=== PATIENT | female | born 1975 | race Caucasian/White ===

== ENCOUNTER → 2016-10-10 | Outpatient (REF) | payer BC | LOC: M SFHCPLAZ 11:24 | PROVIDERS: ATTEND Dermatology | DX: L57.0 Actinic keratosis (principal); L98.8 Other specified disorders of the skin and subcutaneous tissue; L08.89 Other specified local infections of the skin and subcutaneous tissue ==

== ENCOUNTER → 2017-05-29 | Outpatient (REF) | payer BC | LOC: M LAB REF 17:11 | PROVIDERS: ATTEND Family Medicine | DX: Z12.4 Encounter for screening for malignant neoplasm of cervix (principal) ==

== ENCOUNTER → 2017-06-05 | Outpatient (CLI) | payer BC ==
[~2017-06-05] MED LIST: PROHANCE 279.3MG/ML 5ML VIAL (A9576) As Ordered ONE
--- NOTE | 2017-06-06 09:02 | REP ---
MRI pelvis without and with gadolinium: History: Mass effect in the lower uterus on ultrasound May 21, 2017. Technique: Sagittal, axial and coronal imaging planes are utilized. T1 and T2-weighted scans were obtained. Gadolinium enhancement dose: 10 ml of intravenous ProHance. MRI findings: Cortical and medullary bone signal intensity are normal in the visualized bony pelvis. Bladder moore are smooth. There is an anterior myometrial uterine fibroid measuring 3.2 x 2.9 x 3.5 cm. No other fibroid is seen. No uterine or cervical mass is observed. The endometrial canal is unremarkable. Intact junctional zone is seen. There are small Nabothian cysts at the external cervical os. Uterus is tipped somewhat to the right. No significant ovarian cyst or mass is seen. No free fluid is noted. No pelvic adenopathy. Impression: 3.5 cm myometrial fibroid. A Nabothian cyst. No other significant abnormality. Signed by Mario Beaver MD 06/06/2017 11:57 A
== END ==
LOC: M RAD 16:25
PROVIDERS: ATTEND Family Medicine
DX: D39.0 Neoplasm of uncertain behavior of uterus (principal)

== ENCOUNTER 2017-10-07 12:49 | Inpatient (IN) | payer BC ==
[2017-10-07] MEDS: DOCUSATE SODIUM 100 MG CAP PO ×2 (09:00→20:22)
[~2017-10-07 12:49] MED LIST changes: +METOCLOPRAMIDE INJ 10MG/2ML VIAL (J2765) IV; -PROHANCE 279.3MG/ML 5ML VIAL (A9576) As Ordered ONE; +PROMETHAZINE INJ 25 MG/ML VIAL (J2550) IV
[2017-10-07] MEDS: MIRALAX *UNIT DOSE* 17GM PACKET PO ×3 (13:00→20:22)
[2017-10-07 14:08] LABS: BASO % 0.2 % (0.0-1.0); HEMATOCRIT 37.2 % (36.0-47.0); HEMOGLOBIN 12.6 g/dl (12.0-16.0); IMMATURE GRANULOCYTE % 0.9 % (0-3.0); LYMPH # 0.7 10^3/uL (1.5-4.5); LYMPH % 16.4 % (24.0-44.0); MEAN CORPUSCULAR HEMOGLOBIN 28.1 pg (27.0-33.0); MEAN CORPUSCULAR HGB CONC 33.9 g/dl (32.0-36.5); MEAN CORPUSCULAR VOLUME 82.9 fl (80.0-96.0); MONO # 0.1 10^3/uL (0.0-0.8); MONO % 1.6 % (0.0-5.0); NEUTROPHILS # 3.5 10^3/uL (1.8-7.7); NEUTROPHILS % 80.9 % (36.0-66.0); PLATELET COUNT, AUTOMATED 299 10^3/uL (150-450); RED BLOOD COUNT 4.49 10^6/uL (4.00-5.40); RED CELL DISTRIBUTION WIDTH 11.9 % (11.5-14.5); WHITE BLOOD COUNT 4.4 10^3/uL (4.0-10.0)
[2017-10-07 14:18] LABS: INR 1.01; PARTIAL THROMBOPLASTIN TIME 27.2 SECONDS (26.8-37.9); PROTHROMBIN TIME 13.4 SECONDS (12.4-14.5)
[2017-10-07 15:10] LABS: ALBUMIN 2.9 GM/DL (3.2-5.2); ALBUMIN/GLOBULIN RATIO 0.83 (1.00-1.93); ALKALINE PHOSPHATASE 70 U/L (45-117); ALT/SGPT 24 U/L (12-78); ANION GAP 7 MEQ/L (8-16); AST/SGOT 15 U/L (7-37); BILIRUBIN,TOTAL 0.2 MG/DL (0.2-1.0); BLOOD UREA NITROGEN 13 MG/DL (7-18); CALCIUM LEVEL 8.6 MG/DL (8.5-10.1); CARBON DIOXIDE LEVEL 30 MEQ/L (21-32); CHLORIDE LEVEL 99 MEQ/L (98-107); CREATININE FOR GFR 0.49 MG/DL (0.55-1.30); GLOMERULAR FILTRATION RATE > 60.0 (>58); GLUCOSE, FASTING 123 MG/DL (70-100); POTASSIUM SERUM 4.2 MEQ/L (3.5-5.1); SODIUM LEVEL 136 MEQ/L (136-145); TOTAL PROTEIN 6.4 GM/DL (6.4-8.2)
[2017-10-07] MEDS ORDERED: diphenhydrAMINE 50 MG CAP As Ordered (16:31)
[2017-10-07] MEDS: HumaLOG INSULIN (NovoLOG) PER UNIT SC (18:00)
[2017-10-07] MEDS: diphenhydrAMINE 50 MG CAP PO (18:30)
[2017-10-07] MEDS: NS 1,000 ML IV (18:30)
[2017-10-07] MEDS: SODIUM CHLORIDE 0.9% INJ 10 ML SYR IV (19:26)
[2017-10-07] MEDS: AMINO AC/ELECTROLYTE/DEX/CALC 1,000 ML IV (19:27)
[2017-10-07] MEDS: FAT EMULSION IV 20% 500 ML IV (19:27)
[2017-10-07] MEDS: PANTOPRAZOLE 40MG TAB (PROTONIX) PO (20:22)
[2017-10-07 20:58] LABS: CONTROL LINE UCG INT CTR LINE PRESENT; URINE PREG TEST NEGATIVE (NEGATIVE)
[2017-10-08] MEDS: HumaLOG INSULIN (NovoLOG) PER UNIT SC ×2 (00:23→06:15)
[2017-10-08 00:45] LABS: BEDSIDE GLUCOSE 109 MG/DL (70-105)
[2017-10-08] MEDS: diphenhydrAMINE 25 MG CAP PO (01:28)
[2017-10-08 06:10] LABS: BEDSIDE GLUCOSE 110 MG/DL (70-105)
[2017-10-08 07:23] LABS: HEMATOCRIT 31.9 % (36.0-47.0); HEMOGLOBIN 10.9 g/dl (12.0-16.0); MEAN CORPUSCULAR HEMOGLOBIN 27.7 pg (27.0-33.0); MEAN CORPUSCULAR HGB CONC 34.2 g/dl (32.0-36.5); PLATELET COUNT, AUTOMATED 265 10^3/uL (150-450); RED BLOOD COUNT 3.94 10^6/uL (4.00-5.40); WHITE BLOOD COUNT 4.9 10^3/uL (4.0-10.0)
[2017-10-08 07:44] LABS: ALBUMIN 2.3 GM/DL (3.2-5.2); ALBUMIN/GLOBULIN RATIO 0.74 (1.00-1.93); ALKALINE PHOSPHATASE 53 U/L (45-117); ALT/SGPT 19 U/L (12-78); ANION GAP 9 MEQ/L (8-16); AST/SGOT 8 U/L (7-37); BILIRUBIN,TOTAL 0.1 MG/DL (0.2-1.0); BLOOD UREA NITROGEN 12 MG/DL (7-18); CALCIUM LEVEL 7.9 MG/DL (8.5-10.1); CARBON DIOXIDE LEVEL 28 MEQ/L (21-32); CHLORIDE LEVEL 101 MEQ/L (98-107); CREATININE FOR GFR 0.48 MG/DL (0.55-1.30); GLOMERULAR FILTRATION RATE > 60.0 (>58); GLUCOSE, FASTING 69 MG/DL (70-100); POTASSIUM SERUM 3.8 MEQ/L (3.5-5.1); SODIUM LEVEL 138 MEQ/L (136-145); TOTAL PROTEIN 5.4 GM/DL (6.4-8.2)
[2017-10-08] MEDS: PANTOPRAZOLE 40MG TAB (PROTONIX) PO (08:23)
[2017-10-08] MEDS: FLUoxetine 20 MG CAP PO (08:23)
[2017-10-08] MEDS: MIRALAX *UNIT DOSE* 17GM PACKET PO ×4 (08:23→20:22)
[2017-10-08] MEDS: DOCUSATE SODIUM 100 MG CAP PO ×2 (08:24→20:21)
[2017-10-08] MEDS: predniSONE 10 MG TAB PO (08:24)
[2017-10-08] MEDS: AMINO AC/ELECTROLYTE/DEX/CALC 1,000 ML IV (08:25)
[2017-10-08] MEDS ORDERED: CEPACOL LOZENGE PO (14:00)
[2017-10-08] MEDS ORDERED: HumaLOG INSULIN (NovoLOG) PER UNIT SC (18:00)
[2017-10-08] MEDS ORDERED: AMINO AC/ELECTROLYTE/DEX/CALC 1,540 ML IV (18:00)
[2017-10-08] MEDS: SODIUM CHLORIDE 0.9% INJ 10 ML SYR IV (18:00)
[2017-10-08] MEDS: AMINO AC/ELECTROLYTE/DEX/CALC 1,540 ML IV (18:30)
[2017-10-08] MEDS: NS 1,000 ML IV (18:34)
[2017-10-09] MEDS: SODIUM CHLORIDE 0.9% INJ 10 ML SYR IV ×2 (04:54→17:54)
[2017-10-09] MEDS: CHLORASEPTIC SPRAY MT (08:15)
[2017-10-09 08:35] LABS: HEMATOCRIT 36.8 % (36.0-47.0); HEMOGLOBIN 12.3 g/dl (12.0-16.0); MEAN CORPUSCULAR HEMOGLOBIN 27.6 pg (27.0-33.0); MEAN CORPUSCULAR HGB CONC 33.4 g/dl (32.0-36.5); MEAN CORPUSCULAR VOLUME 82.5 fl (80.0-96.0); PLATELET COUNT, AUTOMATED 285 10^3/uL (150-450); RED BLOOD COUNT 4.46 10^6/uL (4.00-5.40); RED CELL DISTRIBUTION WIDTH 12.1 % (11.5-14.5); WHITE BLOOD COUNT 5.7 10^3/uL (4.0-10.0)
[2017-10-09 09:00] LABS: ALBUMIN 2.6 GM/DL (3.2-5.2); ALBUMIN/GLOBULIN RATIO 0.84 (1.00-1.93); ALKALINE PHOSPHATASE 59 U/L (45-117); ALT/SGPT 20 U/L (12-78); ANION GAP 8 MEQ/L (8-16); AST/SGOT 9 U/L (7-37); BILIRUBIN,TOTAL 0.1 MG/DL (0.2-1.0); BLOOD UREA NITROGEN 10 MG/DL (7-18); CALCIUM LEVEL 7.8 MG/DL (8.5-10.1); CARBON DIOXIDE LEVEL 30 MEQ/L (21-32); CHLORIDE LEVEL 100 MEQ/L (98-107); CREATININE FOR GFR 0.56 MG/DL (0.55-1.30); GLOMERULAR FILTRATION RATE > 60.0 (>58); GLUCOSE, FASTING 107 MG/DL (70-100); POTASSIUM SERUM 3.6 MEQ/L (3.5-5.1); SODIUM LEVEL 138 MEQ/L (136-145); TOTAL PROTEIN 5.7 GM/DL (6.4-8.2)
[2017-10-09] MEDS: PANTOPRAZOLE 40MG INJ (PROTONIX) (C9113) IV (09:51)
[2017-10-09] MEDS: HYDROCORTISONE 100 MG/2 ML VIAL (J1720) IV ×2 (10:54→22:28)
[2017-10-09] MEDS: SIMETHICONE 40MG/0.6ML DROPS 30ML NG ×2 (11:36→17:54)
[2017-10-09] MEDS: AMINO AC/ELECTROLYTE/DEX/CALC 1,540 ML IV (15:03)
[2017-10-09] MEDS: NS 1,000 ML IV (17:54)
[2017-10-09] MEDS: MULTIVITAMIN -ADULT INJECTION 10 ML, CR/CU/SE/MN/ZN INJ 1 ML in AMINO AC/ELECTROLYTE/DE... IV (17:54)
[2017-10-10] MEDS: SIMETHICONE 40MG/0.6ML DROPS 30ML NG ×5 (00:59→23:30)
[2017-10-10] MEDS: SODIUM CHLORIDE 0.9% INJ 10 ML SYR IV ×2 (06:00→18:00)
[2017-10-10 07:12] LABS: HEMATOCRIT 38.6 % (36.0-47.0); HEMOGLOBIN 12.6 g/dl (12.0-16.0); MEAN CORPUSCULAR HEMOGLOBIN 27.5 pg (27.0-33.0); MEAN CORPUSCULAR HGB CONC 32.6 g/dl (32.0-36.5); MEAN CORPUSCULAR VOLUME 84.1 fl (80.0-96.0); PLATELET COUNT, AUTOMATED 262 10^3/uL (150-450); RED BLOOD COUNT 4.59 10^6/uL (4.00-5.40); RED CELL DISTRIBUTION WIDTH 12.3 % (11.5-14.5); WHITE BLOOD COUNT 4.3 10^3/uL (4.0-10.0)
[2017-10-10 07:40] LABS: ALBUMIN 2.6 GM/DL (3.2-5.2); ALKALINE PHOSPHATASE 60 U/L (45-117); ALT/SGPT 19 U/L (12-78); ANION GAP 7 MEQ/L (8-16); AST/SGOT 9 U/L (7-37); BILIRUBIN,TOTAL 0.2 MG/DL (0.2-1.0); BLOOD UREA NITROGEN 10 MG/DL (7-18); CALCIUM LEVEL 8.3 MG/DL (8.5-10.1); CARBON DIOXIDE LEVEL 32 MEQ/L (21-32); CHLORIDE LEVEL 101 MEQ/L (98-107); CREATININE FOR GFR 0.52 MG/DL (0.55-1.30); GLOMERULAR FILTRATION RATE > 60.0 (>58); GLUCOSE, FASTING 121 MG/DL (70-100); POTASSIUM SERUM 3.6 MEQ/L (3.5-5.1); SODIUM LEVEL 140 MEQ/L (136-145); TOTAL PROTEIN 6.3 GM/DL (6.4-8.2)
[2017-10-10] MEDS: PANTOPRAZOLE 40MG INJ (PROTONIX) (C9113) IV (10:39)
[2017-10-10] MEDS: HYDROCORTISONE 100 MG/2 ML VIAL (J1720) IV ×2 (10:39→20:38)
[2017-10-10] MEDS: NS 1,000 ML IV (13:00)
[2017-10-10] MEDS: AMINO AC/ELECTROLYTE/DEX/CALC 1,540 ML IV ×2 (15:27→19:11)
[2017-10-11] MEDS: SODIUM CHLORIDE 0.9% INJ 10 ML SYR IV ×3 (06:00→20:31)
[2017-10-11] MEDS: SIMETHICONE 40MG/0.6ML DROPS 30ML NG ×3 (06:14→18:00)
[2017-10-11 07:20] LABS: HEMOGLOBIN 11.1 g/dl (12.0-16.0); MEAN CORPUSCULAR HEMOGLOBIN 27.5 pg (27.0-33.0); MEAN CORPUSCULAR HGB CONC 32.6 g/dl (32.0-36.5); MEAN CORPUSCULAR VOLUME 84.4 fl (80.0-96.0); PLATELET COUNT, AUTOMATED 235 10^3/uL (150-450); RED BLOOD COUNT 4.03 10^6/uL (4.00-5.40); RED CELL DISTRIBUTION WIDTH 12.2 % (11.5-14.5); WHITE BLOOD COUNT 4.1 10^3/uL (4.0-10.0)
[2017-10-11 07:50] LABS: ALBUMIN 2.3 GM/DL (3.2-5.2); ALBUMIN/GLOBULIN RATIO 0.68 (1.00-1.93); ALKALINE PHOSPHATASE 54 U/L (45-117); ALT/SGPT 17 U/L (12-78); ANION GAP 5 MEQ/L (8-16); AST/SGOT 10 U/L (7-37); BILIRUBIN,TOTAL 0.2 MG/DL (0.2-1.0); BLOOD UREA NITROGEN 11 MG/DL (7-18); CALCIUM LEVEL 8.3 MG/DL (8.5-10.1); CARBON DIOXIDE LEVEL 32 MEQ/L (21-32); CHLORIDE LEVEL 103 MEQ/L (98-107); CREATININE FOR GFR 0.44 MG/DL (0.55-1.30); GLOMERULAR FILTRATION RATE > 60.0 (>58); GLUCOSE, FASTING 96 MG/DL (70-100); POTASSIUM SERUM 3.3 MEQ/L (3.5-5.1); SODIUM LEVEL 140 MEQ/L (136-145); TOTAL PROTEIN 5.7 GM/DL (6.4-8.2)
[2017-10-11] MEDS: NS 1,000 ML IV ×2 (10:51→17:51)
[2017-10-11] MEDS: PANTOPRAZOLE 40MG INJ (PROTONIX) (C9113) IV (10:51)
[2017-10-11] MEDS ORDERED: dexameTHASONE 4 MG/ML 1ML VIAL (J1100) As Ordered (12:42)
[2017-10-11] MEDS ORDERED: LIDOCAINE 2% INJ 100 MG/5 ML SDV (FOR ANES.) As Ordered (12:42)
[2017-10-11] MEDS ORDERED: PROPOFOL 200 MG/20 ML VIAL As Ordered (12:42)
[2017-10-11] MEDS ORDERED: ONDANSETRON 4MG/2ML VIAL (J2405) As Ordered (12:42)
[2017-10-11] MEDS ORDERED: ROCURONIUM BROMIDE 50 MG/5 ML VIAL As Ordered (12:42)
[2017-10-11] MEDS ORDERED: fentaNYL 250 MCG/5 ML INJECTION (J3010) As Ordered (12:43)
[2017-10-11] MEDS ORDERED: MIDAZOLAM INJ 2 MG/2 ML VIAL (J2250) As Ordered (12:43)
[2017-10-11] MEDS: ERTAPENEM 1 GM INJ (INVanz) (J1335) As Ordered (13:40)
[2017-10-11] MEDS ORDERED: KETOROLAC 60 MG/2 ML VIAL (J1885) As Ordered (13:56)
[2017-10-11] MEDS ORDERED: NEOSTIGMINE 10 MG/10 ML VIAL (J2710) As Ordered (14:19)
[2017-10-11] MEDS ORDERED: GLYCOPYRROLATE INJ 0.2 MG/ML 2 ML VIAL As Ordered (14:19)
[2017-10-11] MEDS: BUPIVACAINE LIPOSOME/PF 1.3% 20 ML VIAL (13.3MG/ML)(EXPAREL) As Ordered (15:04)
[2017-10-11] MEDS ORDERED: EPIDURAL/PCA KEYS XX (15:30)
[2017-10-11] MEDS ORDERED: NALOXONE INJ 0.4 MG/1 ML VIAL (J2310) IV (15:30)
[2017-10-11] MEDS ORDERED: NALBUPHINE HCL 10 MG/ML AMP (J2300) IV (15:30)
[2017-10-11] MEDS ORDERED: diphenhydrAMINE INJ 50MG/ML VIAL (J1200) IV (15:30)
[2017-10-11] MEDS: IPRATROPIUM 0.5MG/ALBUTEROL 2.5MG INH SOL UD 3ML (DUONEB)(J7620) NEB ×2 (16:00→20:28)
[2017-10-11] MEDS ORDERED: ONDANSETRON 4MG/2ML VIAL (J2405) IV (16:00)
[2017-10-11] MEDS ORDERED: fentaNYL 100 MCG/2 ML INJECTION (J3010) IV (16:00)
[2017-10-11] MEDS: AMINO AC/ELECTROLYTE/DEX/CALC 1,540 ML IV (16:30)
[2017-10-11] MEDS ORDERED: MORPHINE 1MG/ML IN 0.9% NACL 100ML IV BAG As Ordered (16:31)
[2017-10-11] MEDS: MORPHINE 1MG/ML IN 0.9% NACL 100ML IV BAG IV (16:43)
[2017-10-11] MEDS: LR 1,000 ML IV (17:21)
[2017-10-11] MEDS: HYDROCORTISONE 100 MG/2 ML VIAL (J1720) IV ×2 (17:42→20:30)
[2017-10-11] MEDS: ONDANSETRON 4MG/2ML VIAL (J2405) IV (18:03)
[2017-10-11] MEDS: KETOROLAC 30 MG/ML VIAL (J1885) IV (20:30)
[2017-10-11] MEDS: ALVIMOPAN 12 MG CAPSULE (ENTEREG) PO (20:31)
[2017-10-11] MEDS: ALPRAZolam 0.25 MG TAB PO (21:26)
[2017-10-12] MEDS: SIMETHICONE 40MG/0.6ML DROPS 30ML NG ×4 (00:43→18:00)
[2017-10-12] MEDS: KETOROLAC 30 MG/ML VIAL (J1885) IV ×4 (02:25→20:57)
[2017-10-12] MEDS: SODIUM CHLORIDE 0.9% INJ 10 ML SYR IV ×3 (06:41→20:58)
[2017-10-12 06:49] LABS: HEMATOCRIT 33.5 % (36.0-47.0); HEMOGLOBIN 11.2 g/dl (12.0-16.0); MEAN CORPUSCULAR HEMOGLOBIN 27.5 pg (27.0-33.0); MEAN CORPUSCULAR HGB CONC 33.4 g/dl (32.0-36.5); MEAN CORPUSCULAR VOLUME 82.3 fl (80.0-96.0); PLATELET COUNT, AUTOMATED 268 10^3/uL (150-450); RED BLOOD COUNT 4.07 10^6/uL (4.00-5.40); RED CELL DISTRIBUTION WIDTH 12.1 % (11.5-14.5); WHITE BLOOD COUNT 7.7 10^3/uL (4.0-10.0)
[2017-10-12 07:12] LABS: ALBUMIN 2.1 GM/DL (3.2-5.2); ALBUMIN/GLOBULIN RATIO 0.62 (1.00-1.93); ALKALINE PHOSPHATASE 59 U/L (45-117); ALT/SGPT 18 U/L (12-78); ANION GAP 7 MEQ/L (8-16); AST/SGOT 13 U/L (7-37); BILIRUBIN,TOTAL 0.2 MG/DL (0.2-1.0); BLOOD UREA NITROGEN 7 MG/DL (7-18); CALCIUM LEVEL 8.1 MG/DL (8.5-10.1); CARBON DIOXIDE LEVEL 28 MEQ/L (21-32); CHLORIDE LEVEL 106 MEQ/L (98-107); CREATININE FOR GFR 0.36 MG/DL (0.55-1.30); GLOMERULAR FILTRATION RATE > 60.0 (>58); GLUCOSE, FASTING 127 MG/DL (70-100); POTASSIUM SERUM 3.7 MEQ/L (3.5-5.1); SODIUM LEVEL 141 MEQ/L (136-145); TOTAL PROTEIN 5.5 GM/DL (6.4-8.2)
[2017-10-12] MEDS: IPRATROPIUM 0.5MG/ALBUTEROL 2.5MG INH SOL UD 3ML (DUONEB)(J7620) NEB ×4 (08:03→20:00)
[2017-10-12] MEDS: ALVIMOPAN 12 MG CAPSULE (ENTEREG) PO ×2 (09:11→20:57)
[2017-10-12] MEDS: PANTOPRAZOLE 40MG INJ (PROTONIX) (C9113) IV (09:12)
[2017-10-12] MEDS: HYDROCORTISONE 100 MG/2 ML VIAL (J1720) IV ×2 (09:15→20:56)
[2017-10-12] MEDS: AMINO AC/ELECTROLYTE/DEX/CALC 1,540 ML IV (12:47)
[2017-10-12] MEDS: NS 1,000 ML IV (18:02)
[2017-10-12] MEDS: diphenhydrAMINE 50 MG CAP PO (20:57)
[2017-10-13] MEDS: SIMETHICONE 40MG/0.6ML DROPS 30ML NG ×4 (00:20→20:18)
[2017-10-13] MEDS: SODIUM CHLORIDE 0.9% INJ 10 ML SYR IV ×5 (01:58→20:19)
[2017-10-13] MEDS: KETOROLAC 30 MG/ML VIAL (J1885) IV ×4 (01:58→20:19)
[2017-10-13] MEDS: ALVIMOPAN 12 MG CAPSULE (ENTEREG) PO ×2 (08:40→20:19)
[2017-10-13] MEDS: HYDROCORTISONE 100 MG/2 ML VIAL (J1720) IV ×2 (08:41→20:18)
[2017-10-13] MEDS: PANTOPRAZOLE 40MG INJ (PROTONIX) (C9113) IV (08:41)
[2017-10-13] MEDS: IPRATROPIUM 0.5MG/ALBUTEROL 2.5MG INH SOL UD 3ML (DUONEB)(J7620) NEB ×4 (09:04→21:41)
[2017-10-13] MEDS: AMINO AC/ELECTROLYTE/DEX/CALC 1,540 ML IV (09:25)
[2017-10-13] MEDS: diphenhydrAMINE 50 MG CAP PO (20:19)
[2017-10-14] MEDS: SIMETHICONE 40MG/0.6ML DROPS 30ML NG ×4 (00:04→18:34)
[2017-10-14] MEDS: KETOROLAC 30 MG/ML VIAL (J1885) IV ×2 (02:32→09:13)
[2017-10-14] MEDS: SODIUM CHLORIDE 0.9% INJ 10 ML SYR IV ×3 (05:03→18:34)
[2017-10-14] MEDS: AMINO AC/ELECTROLYTE/DEX/CALC 1,540 ML IV (05:26)
[2017-10-14 07:03] LABS: HEMATOCRIT 29.8 % (36.0-47.0); HEMOGLOBIN 9.8 g/dl (12.0-16.0); MEAN CORPUSCULAR HEMOGLOBIN 27.3 pg (27.0-33.0); MEAN CORPUSCULAR HGB CONC 32.9 g/dl (32.0-36.5); PLATELET COUNT, AUTOMATED 311 10^3/uL (150-450); RED BLOOD COUNT 3.59 10^6/uL (4.00-5.40); RED CELL DISTRIBUTION WIDTH 12.4 % (11.5-14.5); WHITE BLOOD COUNT 4.9 10^3/uL (4.0-10.0)
[2017-10-14 07:23] LABS: ALBUMIN 2.3 GM/DL (3.2-5.2); ALKALINE PHOSPHATASE 53 U/L (45-117); ALT/SGPT 38 U/L (12-78); ANION GAP 7 MEQ/L (8-16); AST/SGOT 26 U/L (7-37); BILIRUBIN,TOTAL 0.2 MG/DL (0.2-1.0); BLOOD UREA NITROGEN 12 MG/DL (7-18); CALCIUM LEVEL 8.4 MG/DL (8.5-10.1); CARBON DIOXIDE LEVEL 29 MEQ/L (21-32); CHLORIDE LEVEL 106 MEQ/L (98-107); GLOMERULAR FILTRATION RATE > 60.0 (>58); GLUCOSE, FASTING 94 MG/DL (70-100); POTASSIUM SERUM 3.3 MEQ/L (3.5-5.1); SODIUM LEVEL 142 MEQ/L (136-145); TOTAL PROTEIN 5.6 GM/DL (6.4-8.2)
[2017-10-14] MEDS: IPRATROPIUM 0.5MG/ALBUTEROL 2.5MG INH SOL UD 3ML (DUONEB)(J7620) NEB ×4 (08:11→20:00)
[2017-10-14] MEDS: HYDROCORTISONE 100 MG/2 ML VIAL (J1720) IV (09:13)
[2017-10-14] MEDS: PANTOPRAZOLE 40MG INJ (PROTONIX) (C9113) IV (09:13)
[2017-10-14] MEDS: ALVIMOPAN 12 MG CAPSULE (ENTEREG) PO (09:28)
[2017-10-14] MEDS ORDERED: ACETAMINOPHEN TAB 650MG DOSE (2X325MG) PO (12:00)
[2017-10-14] MEDS ORDERED: NORCO, ANEXSIA 5/325MG TABLET (HYDROcodone/ACETAMINOPHEN) PO (12:00)
[2017-10-14] MEDS ORDERED: IBUPROFEN 400 MG TAB PO (12:00)
[2017-10-15] MEDS: SIMETHICONE 40MG/0.6ML DROPS 30ML NG ×3 (00:07→11:50)
[2017-10-15] MEDS: SODIUM CHLORIDE 0.9% INJ 10 ML SYR IV (05:22)
[2017-10-15] MEDS: IPRATROPIUM 0.5MG/ALBUTEROL 2.5MG INH SOL UD 3ML (DUONEB)(J7620) NEB ×3 (07:47→16:30)
[2017-10-15] MEDS: predniSONE 5 MG TAB PO (09:03)
== END 2017-10-15 18:25 | disposition home or self-care (01) | DRG 221 ==
LOC: M PED 12:49
PROC: 0DB84ZZ Excision of Small Intestine, Percutaneous Endoscopic Approach (ICD-10-PCS; principal; 2017-10-11 12:00)
PROC: 0DTJ4ZZ Resection of Appendix, Percutaneous Endoscopic Approach (ICD-10-PCS; 2017-10-11 12:00)
PROC: 07BB4ZZ Excision of Mesenteric Lymphatic, Percutaneous Endoscopic Approach (ICD-10-PCS; 2017-10-11 12:00)
PROC: 02HV33Z Insertion of Infusion Device into Superior Vena Cava, Percutaneous Approach (ICD-10-PCS; 2017-10-11 13:06)
DX: N80.5 Endometriosis of intestine (principal); K56.609 Unspecified intestinal obstruction, unspecified as to partial versus complete obstruction; Z79.899 Other long term (current) drug therapy

== ENCOUNTER → 2018-05-19 | Outpatient (REF) | payer BC | LOC: M SFHCLERA 09:09 | DX: C44.602 Unspecified malignant neoplasm of skin of right upper limb, including shoulder (principal) | CPT/HCPCS: 88305 ==

== ENCOUNTER → 2018-07-21 | Outpatient (REF) | payer BC | LOC: M SFHCLERA 16:13 | DX: J02.9 Acute pharyngitis, unspecified (principal) ==

== ENCOUNTER → 2018-08-04 | Outpatient (CLI) | payer BC ==
[2018-08-04 17:58] LABS: APPEARANCE, URINE CLEAR (CLEAR); BACTERIA, URINE AUTO NEGATIVE (NEGATIVE); BILIRUBIN, URINE AUTO NEGATIVE (NEGATIVE); BLOOD, URINE BLOOD NEGATIVE (NEGATIVE); COLOR, URINE STRAW (YELLOW); GLUCOSE, URINE (UA) AUTO NEGATIVE (NEGATIVE); KETONE, URINE AUTO 1+ mg/dL (NEGATIVE); LEUKOCYTE ESTERASE, URINE AUTO NEGATIVE (NEGATIVE); NITRITE, URINE AUTO NEGATIVE (NEGATIVE); PROTEIN, URINE AUTO NEGATIVE (NEGATIVE); RBC, URINE AUTO 1 /HPF (0-3); SQUAMOUS EPITHELIAL CELL UR AU 0 /HPF (0-6); UROBILINOGEN, URINE AUTO 0.2 mg/dL (0.0-2.0); WBC, URINE AUTO 0 /HPF (0-3)
[2018-08-04 18:04] LABS: BASO % 0.3 % (0.0-1.0); EOS # 0.2 10^3/uL (0.0-0.50); EOS % 2.6 % (0.0-3.0); HEMATOCRIT 39.9 % (36.0-47.0); HEMOGLOBIN 13.2 g/dl (12.0-15.5); IMMATURE GRANULOCYTE % 0.3 % (0-3.0); LYMPH # 2.3 10^3/uL (1.5-4.5); MEAN CORPUSCULAR HEMOGLOBIN 30.3 pg (27.0-33.0); MEAN CORPUSCULAR HGB CONC 33.1 g/dl (32.0-36.5); MEAN CORPUSCULAR VOLUME 91.5 fl (80.0-96.0); MONO # 0.3 10^3/uL (0.0-0.8); MONO % 4.3 % (0.0-5.0); NEUTROPHILS # 4.8 10^3/uL (1.8-7.7); NEUTROPHILS % 62.5 % (36.0-66.0); PLATELET COUNT, AUTOMATED 329 10^3/uL (150-450); RED BLOOD COUNT 4.36 10^6/uL (4.00-5.40); RED CELL DISTRIBUTION WIDTH 11.8 % (11.5-14.5); WHITE BLOOD COUNT 7.7 10^3/uL (4.0-10.0)
[2018-08-04 18:27] LABS: ANION GAP 5 MEQ/L (8-16); BLOOD UREA NITROGEN 13 MG/DL (7-18); CALCIUM LEVEL 8.9 MG/DL (8.5-10.1); CARBON DIOXIDE LEVEL 30 MEQ/L (21-32); CHLORIDE LEVEL 104 MEQ/L (98-107); CREATININE FOR GFR 0.71 MG/DL (0.55-1.30); GLOMERULAR FILTRATION RATE > 60.0 (>58); GLUCOSE, FASTING 87 MG/DL (70-100); POTASSIUM SERUM 4.1 MEQ/L (3.5-5.1); SODIUM LEVEL 139 MEQ/L (136-145)
== END ==
LOC: M SMT 14:31
DX: Z01.818 Encounter for other preprocedural examination (principal)
CPT/HCPCS: 80048

== ENCOUNTER → 2020-05-05 | Outpatient (REF) | payer BC ==
[~2020-05-05] MED LIST changes: +DICY10CA13 PO; +FLUO20CA22 PO; +MAGN400T5 PO; -METOCLOPRAMIDE INJ 10MG/2ML VIAL (J2765) IV; +OMEP40CA97 PO; +PRED10TA2 PO; -PROMETHAZINE INJ 25 MG/ML VIAL (J2550) IV
== END ==
LOC: M LAB REF 13:00
PROVIDERS: ATTEND Family Medicine
DX: D25.9 Leiomyoma of uterus, unspecified (principal)

== ENCOUNTER 2020-09-03 09:45 | Emergency (ER) | payer BC ==
[~2020-09-03] VITALS: Ht 142.2 cm; Wt 54.5 kg
--- NOTE | 2020-09-03 11:05 | REP ---
INDICATION: anisicoria-right dilitation COMPARISON: None. TECHNIQUE: Axial noncontrast images from the skull base to the vertex with coronal reformations. This CT examination was performed using the following dose reduction techniques: Automated exposure control, adjustment of mA and/or kv according to the patient's size, and use of iterative reconstruction technique. FINDINGS: The ventricles, sulci, and cisterns are normal in position and appearance. Luque-white differentiation is maintained. No acute intracranial hemorrhage, mass/mass effect, pathology or trauma/injury. No evidence for acute infarction. No extra-axial fluid collection. Calvarium is intact. Paranasal sinuses and mastoid air cells are clear. IMPRESSION: Normal noncontrast head CT. No evidence for acute intracranial pathology or trauma/injury. <Electronically signed by Ryan Rea > 09/03/20 [id number]
--- NOTE | 2020-09-03 12:44 | REP ---
INDICATION: anisicoria COMPARISON: 10/07/2017 TECHNIQUE: PA and lateral. FINDINGS: The mediastinum and cardiac silhouette are normal. The lung yepez are clear and without acute consolidation, effusion, or pneumothorax. The skeletal structures are intact and normal. IMPRESSION: No acute cardiopulmonary process. <Electronically signed by Ryan Rea > 09/03/20 [id number]
[2020-09-03 13:13] VITALS: BP 151/87
== END 2020-09-03 13:29 | disposition home or self-care (01) ==
LOC: M ED 09:45
DX: H57.02 Anisocoria (principal); Z79.899 Other long term (current) drug therapy

== ENCOUNTER → 2021-06-30 | Outpatient (CLI) | payer BC ==
[~2021-06-30] MED LIST changes: +OMEP40CA4 PO; -OMEP40CA97 PO
--- NOTE | 2021-06-30 15:43 | REP ---
INDICATION: PELVIC PAIN ENDOMETROSIS. COMPARISON: 04/20/2020 the latest prior TECHNIQUE: Transvesical and transvaginal imaging FINDINGS: The uterus measures 11.4 x 5.6 x 8 cm. Once again, there is evidence of rather extensive myomatous change. There is a 5.3 x 4.7 x 4.9 cm sized mass in the midline. There is a 3.2 x 2.7 x 3.1 cm sized fundal mass. There is a pedunculated appearing 11.4 x 6.1 by 11.2 cm sized mass. There are numerous smaller solid nodules throughout the uterus. These are so numerous and vast that it is difficult to say with certainty whether not any of these of increased in size compared to the prior exam. The endometrial echo complex cannot be evaluated due to marked distortion due to the masses. The right ovary measures 4.3 x 2.3 x 3.9 cm. Within the right ovary there is a 2.5 cm sized anechoic structure which exhibits posterior wall enhancement and increased through transmission. The right ovarian RI is 0.45. Left ovary measures 3.7 x 2.4 x 3.2 cm. The left ovary there is a 2.2 cm sized anechoic structure that exhibits posterior wall enhancement and increased through transmission. The left ovarian RI is 0.74. Urinary bladder measures 8 x 4 x 8 cm. IMPRESSION: 1. Marked uterine parenchymal myomatous changes as described above. 2. Bilateral small ovarian cyst. 3. Other findings and limitations as described above. <Electronically signed by Joel Lewis > 06/30/21 [id number]
== END ==
LOC: M RAD 10:52
PROVIDERS: ATTEND Family Medicine
DX: D25.9 Leiomyoma of uterus, unspecified (principal); N80.0 Endometriosis of uterus; N83.202 Unspecified ovarian cyst, left side; N83.201 Unspecified ovarian cyst, right side

== ENCOUNTER → 2022-06-27 | Outpatient (REF) | payer BC | LOC: M LAB REF 17:03 | PROVIDERS: ATTEND Family Medicine | DX: N39.0 Urinary tract infection, site not specified (principal) ==

== ENCOUNTER → 2022-08-15 | Outpatient (REF) | payer BC | LOC: M LAB REF 17:06 | PROVIDERS: ATTEND Family Medicine | DX: R30.0 Dysuria (principal) ==

== ENCOUNTER → 2022-08-15 | Outpatient (REF) | payer BC | LOC: M LAB REF 20:50 | PROVIDERS: ATTEND Family Medicine | DX: N76.0 Acute vaginitis (principal) ==

== ENCOUNTER → 2022-11-02 | Outpatient (REF) | payer BC | LOC: M LAB REF 14:03 | PROVIDERS: ATTEND Nurse Practitioner Adult Health | DX: N89.9 Noninflammatory disorder of vagina, unspecified (principal) ==

== ENCOUNTER → 2022-12-31 | Outpatient (REF) | payer BC | LOC: M LAB REF 16:57 | PROVIDERS: ATTEND Nurse Practitioner Adult Health | DX: R35.0 Frequency of micturition (principal); N89.8 Other specified noninflammatory disorders of vagina ==

== ENCOUNTER → 2023-06-19 | Outpatient (REF) | payer BC ==
[~2023-06-19] MED LIST changes: +DICY-61 PO; -DICY10CA13 PO
== END ==
LOC: M LAB REF 16:50
PROVIDERS: ATTEND Family Medicine
DX: N76.0 Acute vaginitis (principal); J02.9 Acute pharyngitis, unspecified

== ENCOUNTER → 2023-12-10 | Outpatient (REF) | payer BC | LOC: M LAB REF 16:57 | PROVIDERS: ATTEND Family Medicine | DX: N76.0 Acute vaginitis (principal) ==